=== PATIENT | female | born 1995 | race Caucasian/White ===

== ENCOUNTER 2017-03-04 13:39 | Emergency (ER) | payer OTHER ==
[~2017-03-04] VITALS: Ht 174.6 cm; Wt 113.4 kg
[2017-03-04 13:59] VITALS: Ht 174.6 cm; Wt 113.4 kg
[2017-03-04 15:40] VITALS: BP 116/68
== END 2017-03-04 15:40 | disposition home or self-care (01) ==
LOC: ED 13:39
DX: J45.901 Unspecified asthma with (acute) exacerbation (principal)
CPT/HCPCS: J7613; J7644